=== PATIENT | female | born 1970 | race Caucasian/White ===

== ENCOUNTER 2022-03-20 16:42 | Emergency (ER) | payer MEDICAID ==
[~2022-03-20] VITALS: Ht 160 cm; Wt 69.9 kg
[2022-03-20 17:16] VITALS: BP 153/90
--- NOTE | 2022-03-20 18:14 | NUR ---
COVID, FLU SWAB DONE.
[2022-03-20] MEDS ORDERED: ACET-10509 PO (19:04)
[2022-03-20] MEDS ORDERED: CYCL-711 PO (19:04)
[2022-03-20] MEDS ORDERED: LIDO4CRE18 TP (19:04)
--- NOTE | 2022-03-20 19:18 | NUR ---
Patient discharged with v/s stable. Written and verbal after care instructions given and explained. Patient alert, oriented and verbalized understanding of instructions. Ambulatory with steady gait. All questions addressed prior to discharge. ID band removed. Patient advised to follow up with PMD. Rx of TYLENOL, FLEXERIL, AND LIDOCAINE given. Patient educated on indication of medication including possible reaction and side effects. Opportunity to ask questions provided and answered.
== END 2022-03-20 19:18 | disposition home or self-care (01) ==
LOC: MED 16:42
DX: J02.9 Acute pharyngitis, unspecified (principal); R51.9 Headache, unspecified; G89.29 Other chronic pain; M54.50 Low back pain, unspecified; R03.0 Elevated blood-pressure reading, without diagnosis of hypertension; H92.03 Otalgia, bilateral; Z20.822 Contact with and (suspected) exposure to COVID-19; Z79.899 Other long term (current) drug therapy; Z88.6 Allergy status to analgesic agent
CPT/HCPCS: 99283